=== PATIENT | male | born 1930 | race Caucasian/White ===

== ENCOUNTER → 2016-05-04 | Outpatient (CLI) | payer OTHER ==
--- NOTE | 2016-05-04 16:14 | MRI ---
HISTORY: Chronic low back pain Study: MRI lumbar spine without contrast Comparison: None Technique: Multiplanar multi-sequence MRI of the lumbar spine was obtained. Sagittal T1, sagittal T 2, and stir weighted images, axial T1, and axial T2 images were obtained. Findings: The lumbar spine demonstrates normal alignment. No abnormal cord or marrow signal identified. The c onus of the cord terminates normally. The surrounding soft tissues are within normal limits. Verteb ral body heights are preserved. There is multilevel disc desiccation and spondylosis. No cortical de struction or inflammatory changes are seen. T12 -- L1: No significant stenosis identified. L1 -- L2: No significant stenosis identified. L2 -- L3: There is a broad-based disc bulge and [id number] facet degenerative changes resultin g in moderate spinal canal narrowing. No significant foraminal stenosis identified. L3 -- L4: There is a moderate-sized broad-based disc bulge asymmetric to the left and mild to modera te bilateral facet hypertrophic changes resulting in mild spinal canal narrowing. No significant for aminal stenosis. L4 -- L5: There is a broad-based disc bulge slightly asymmetric to the right without significant for aminal stenosis. L5 -- S1: No significant stenosis identified. IMPRESSION: Multilevel disc bulges as described with moderate central stenosis at L2-L3 and mild stenosis at L3- L4. No significant foraminal encroachment. Reported By:
== END ==
LOC: RAD 13:44
PROVIDERS: ATTEND Nurse Practitioner Family
DX: M54.16 Radiculopathy, lumbar region (principal)
CPT/HCPCS: 72148